=== PATIENT | female | born 1985 | race Caucasian/White ===

== ENCOUNTER 2017-04-21 12:12 | Emergency (ER) | payer OTHER ==
[2017-04-21 12:25] VITALS: BMI 33.3
[2017-04-21] MEDS ORDERED: ACETAMINOPHEN 500 MG TABLET (FP) PO ONE (13:16)
[2017-04-21 13:18] LABS: URINE APPEARANCE SLCLOUDY; URINE BILIRUBIN NEGATIVE (NEGATIVE); URINE BLOOD NEGATIVE (NEGATIVE); URINE COLOR YELLOW; URINE GLUCOSE (UA) NEGATIVE (NEGATIVE); URINE KETONE NEGATIVE (NEGATIVE); URINE LEUK ESTERASE NEGATIVE (NEGATIVE); URINE NITRITE NEGATIVE (NEGATIVE); URINE PROTEIN NEGATIVE (NEGATIVE); URINE UROBILINOGEN NEGATIVE mg/dL (0.2-1.0)
[2017-04-21] MEDS ORDERED: ACETAMINOPHEN 325 MG TABLET (FP) ONE (13:21)
--- NOTE | 2017-04-21 13:31 | PDOC ---
History of Present Illness - General Chief Complaint: Pain Stated Complaint: ABDOMINAL PAIN Time Seen by Provider: 04/21/17 12:25 History Source: Patient Exam Limitations: No Limitations - History of Present Illness Travel History: No Initial Comments: 04/21/17 13:26 31-year-old female presents the emergency room with worsening left suprapubic cramping that began yesterday and worsened in severity today. Patient states was moving her bowels which she states has been semi-formed to diarrhea for the past 2 days when she had the sudden sharp pain to the left lower quadrant. Patient denies history of GI disorders but does state history of PCO S and the LEEP procedure. Patient also states was started on oral contraceptives 3 weeks ago and did double up on a pill 2 days ago. Patient has no urinary complaints, fever, chills, abdominal distention, or weakness Timing/Duration: reports: getting worse Quality: reports: moderate, cramping, sharpness Abdominal Pain Onset Location: reports: suprapubic (lt) Pain Radiation: reports: LLQ, periumbilical Activities at Onset: reports: none Aggravating Factors: improves with: Movement Alleviating Factors: improves with: None Past History - Travel Traveled outside of the country in the last 30 days: No Close contact w/someone who was outside of country & ill: No - Past Medical History Allergies/Adverse Reactions: Allergies Allergy/AdvReac Type Severity Reaction Status Date / Time No Known Allergies Allergy Verified 04/21/17 12:25 Home Medications: Ambulatory Orders Iron 18 mg PO Q2D 04/21/17 Norethindrone-E.estradiol-Iron [Microgestin 24 Fe 1 mg-20 Mcg] 1 tab PO DAILY Anemia: Yes Other medical history: POS - Surgical History Abdominal Surgery: Yes (csection x3, leep,circulage) - Psycho/Social/Smoking Cessation Hx Suicidal Ideation: No Smoking History: Unknown if ever smoked Hx Alcohol Use: No Drug/Substance Use Hx: No Patient Lives Alone: No Lives with/in: spouse/SO Abd/GI Specific PMHX - Complaint Specific PMHX Colitis: No Diverticulitis: No Irritable Bowel Synd (IBS): No Review of Systems - Review of Systems Able to Perform ROS?: Yes Constitutional: No: Symptoms Reported ABD/GI: Yes: Diarrhea, Abdominal cramping Musculoskeletal: No: Symptoms Reported Integumentary: No: Symptoms Reported Neurological: No: Symptoms reported *Physical Exam - Vital Signs Last Vital Signs Temp Pulse Resp BP Pulse Ox 98.2 F 83 14 105/77 99 04/21/17 12:15 04/21/17 12:15 04/21/17 12:15 04/21/17 12:15 04/21/17 12:32 - Physical Exam General Appearance: Yes: Nourished, Appropriately Dressed. No: Apparent Distress Female Pelvic Exam: positive: normal external exam, cervical os closed, adnexal tenderness (mild left). negative: CMT, discharge, vaginal bleeding Gastrointestinal/Abdominal: positive: Normal Bowel Sounds, Soft, Tenderness ( left lower quadrant left suprapubic and lower periumbilical) Musculoskeletal: negative: CVA Tenderness Extremity: positive: Normal Capillary Refill Integumentary: positive: Normal Color, Warm, Moist Neurologic: positive: Motor Strength 5/5 (ambulatory) ED Treatment Course - LABORATORY CBC & Chemistry Diagram: 04/21/17 16:50 04/21/17 16:50 - ADDITIONAL ORDERS Additional order review: Laboratory Results 04/21/17 01:02 Urine Color Yellow Urine Appearance Slcloudy Urine pH 5.0 Urine Protein Negative Urine Glucose (UA) Negative Urine Ketones Negative Urine Blood Negative Urine Nitrite Negative Urine Bilirubin Negative Urine Urobilinogen Negative Ur Leukocyte Esterase Negative - RADIOLOGY Radiology Studies Ordered: Category Date Time Status PELVIC / BLADDER US [US] Stat Ultrasound 04/21/17 13:17 Ordered TRANSVAGINAL ULTRASOUND US [US] Stat Ultrasound 04/21/17 13:16 Ordered - Medications Given in the ED: ED Medications Discontinued Medications Generic Name Dose Route Start Last Admin Trade Name Freq PRN Reason Stop Dose Admin Acetaminophen 975 mg 04/21/17 13:16 04/21/17 13:19 Tylenol - PO 04/21/17 13:17 975 mg ONCE ONE Administration Medical Decision Making - Medical Decision Making 04/21/17 13:31 Patient here with complaints of left lower quadrant pain along with diarrhea for the past 3 days. Patient history of pcos and was recently started on OCP, 3 weeks ago. Patient exam had adnexal tenderness and suprapubic tenderness concerning for cysts versus torsion versus ectopic. Patient ordered for ultrasound urinalysis urine culture and urine . 04/21/17 14:07 Laboratory Tests 04/21/17 01:02 Urine Ketones Negative Urine Nitrite Negative Urine Urobilinogen Negative 04/21/17 15:44 Ultrasound shows a small uterine fibroid and trace free pelvic fluid but no evidence of ovarian cyst or torsion. 04/21/17 17:40 Laboratory Tests 04/21/17 04/21/17 04/21/17 16:50 16:50 16:50 WBC 6.9 Hgb 10.7 Hct 32.8 MCV 74.0 L MCH 24.2 L RDW 18.3 H Sodium 138 Potassium 4.1 Chloride 105 Carbon Dioxide 24 Anion Gap 9 BUN 14 Creatinine 0.5 L Creat Clearance w eGFR > 60 Random Glucose 111 H Calcium 9.0 AST 9 L Albumin 3.0 L Serum , Qual Negative Pt stated feeling better and drinking aplle juice without difficulty or complaints. Patient on re- exam had mild left suprapubic tenderness and mid suprapubic tenderness. Patient to be discharged home to follow bland diet over the next 72 hours and return to the ED if symptoms worsen. *DC/Admit/Observation/Transfer Diagnosis at time of Disposition: Suprapubic pain - Discharge Dispostion Disposition: HOME Condition at time of disposition: Improved - Referrals Referrals: Ysabel Bruce MD [Primary Care Provider] - - Patient Instructions Printed Discharge Instructions: DI for Uterine Fibroids Additional Instructions: Please take Tylenol for discomfort and eat a bland diet for the next 72 hours. If symptoms return or worsen please come back to the emergency room immediately.
--- NOTE | 2017-04-21 15:50 | PDOC ---
*Physical Exam - Vital Signs Last Vital Signs Temp Pulse Resp BP Pulse Ox 98.2 F 83 14 105/77 99 04/21/17 12:15 04/21/17 12:15 04/21/17 12:15 04/21/17 12:15 04/21/17 12:32 ED Treatment Course - LABORATORY CBC & Chemistry Diagram: 04/21/17 16:50 04/21/17 16:50 - ADDITIONAL ORDERS Additional order review: Laboratory Results 04/21/17 01:02 Urine Color Yellow Urine Appearance Slcloudy Urine pH 5.0 Urine Protein Negative Urine Glucose (UA) Negative Urine Ketones Negative Urine Blood Negative Urine Nitrite Negative Urine Bilirubin Negative Urine Urobilinogen Negative Ur Leukocyte Esterase Negative - Medications Given in the ED: ED Medications Discontinued Medications Generic Name Dose Route Start Last Admin Trade Name Freq PRN Reason Stop Dose Admin Acetaminophen 975 mg 04/21/17 13:16 04/21/17 13:19 Tylenol - PO 04/21/17 13:17 975 mg ONCE ONE Administration Medical Decision Making - Medical Decision Making 04/21/17 22:58 Agree with UX INFORMATION ARCHITECT's evaluation, assessment, and plan. 31 F with lower abdominal pain. Work up, including UA, transvaginal US, labwork all negative. Safe for DC. *DC/Admit/Observation/Transfer Diagnosis at time of Disposition: Suprapubic abdominal pain - Discharge Dispostion Disposition: HOME Condition at time of disposition: Improved - Referrals Referrals: Ysabel Bruce MD [Primary Care Provider] - - Patient Instructions Printed Discharge Instructions: DI for Uterine Fibroids Additional Instructions: Please take Tylenol for discomfort and eat a bland diet for the next 72 hours. If symptoms return or worsen please come back to the emergency room immediately.
[2017-04-21 17:18] LABS: BASOPHIL 0.2 % (0-2.0); EOSINOPHIL 0.1 % (0-4.5); MCH 24.2 pg (25.7-33.7); MCHC 32.7 g/dl (32.0-36.0); MEAN PLT VOLUME 9.1 fl (7.5-11.1); NEUTROPHILS 74.2 % (42.8-82.8); PLATELET COUNT 244 K/MM3 (134-434); RDW 18.3 % (11.6-15.6); WHITE BLOOD COUNT 6.9 K/mm3 (4.0-10.0)
[2017-04-21 17:33] LABS: ANION GAP 9 (8-16); BILIRUBIN,TOTAL 0.3 mg/dL (0.2-1.0); CO2 24 mmol/L (21-32); CREATININE 0.5 mg/dL (0.55-1.02); GLUCOSE,RANDOM 111 mg/dL (74-106); SGOT/AST 9 U/L (15-37); SGPT/ALT 33 U/L (12-78); TOT PROT 6.5 g/dl (6.4-8.2)
[2017-04-21 17:34] LABS: ALK PHOS 116 U/L (45-117)
[2017-04-21 19:44] VITALS: BP 139/75; PULSE 86; TEMP 98.7
== END 2017-04-21 18:05 | disposition home or self-care (01) ==
LOC: JER 12:12
DX: D25.9 Leiomyoma of uterus, unspecified (principal); E28.2 Polycystic ovarian syndrome
CPT/HCPCS: 36415; 76830-TC; 76856-TC; 80053; 81003; 84703; 85025; 87086; 87186; 99283-25

== ENCOUNTER 2020-10-25 13:49 | Emergency (ER) | payer OTHER ==
[2020-10-25 13:57] VITALS: BP 112/71; PULSE 90; TEMP 98.2; BMI 29.4
[2020-10-25] MEDS ORDERED: SODIUM CHLORIDE 1,000 ML IV STA (14:49)
[2020-10-25] MEDS ORDERED: ONDANSETRON 4 MG/2 ML VIAL IVPUSH ONE (14:50)
[2020-10-25 16:38] LABS: BASO % 0.7 % (0-2.0); EOS % 0.3 % (0-4.5); HEMATOCRIT 33.8 % (32.4-45.2); LYMPH % 23.8 % (8-40); MCH 23.7 pg (25.7-33.7); MCHC 32.5 g/dl (32.0-36.0); MEAN CELL VOLUME 72.8 fl (80-96); MEAN PLT VOLUME 9.2 fl (7.5-11.1); MONO % 9.3 % (3.8-10.2); NEUT % 65.9 % (42.8-82.8); PLATELET COUNT 325 K/MM3 (134-434); RBC 4.64 M/mm3 (3.60-5.2); RDW 18.9 % (11.6-15.6); WHITE BLOOD COUNT 5.8 K/mm3 (4.0-10.0)
[2020-10-25 16:51] LABS: CHLORIDE 106 mmol/L (98-107); POTASSIUM 3.7 mmol/L (3.5-5.1); SODIUM 137 mmol/L (136-145)
[2020-10-25 16:52] LABS: CALCIUM 9.2 mg/dL (8.5-10.1)
[2020-10-25 16:53] LABS: ALBUMIN 4.2 g/dl (3.4-5.0); ANION GAP 9 MMOL/L (8-16); BLOOD UREA NITROGEN 21.7 mg/dL (7-18); CO2 23 mmol/L (21-32); GLUCOSE,RANDOM 86 mg/dL (74-106)
[2020-10-25 16:56] LABS: SGOT/AST 7 U/L (15-37); SGPT/ALT 13 U/L (13-61)
[2020-10-25 16:58] LABS: BILIRUBIN,TOTAL 0.5 mg/dL (0.2-1); TOT PROT 8.1 g/dl (6.4-8.2)
[2020-10-25 17:00] LABS: ALK PHOS 66 U/L (45-117)
[2020-10-25 17:01] LABS: CREATININE 0.7 mg/dL (0.55-1.3)
[2020-10-25] MEDS ORDERED: MAG HYDROX/AL HYDROX/SIMETH -MYLANTA- ORAL SUSPENSION PO ONE (17:26)
[2020-10-25 17:28] LABS: PLATELET ESTIMATE ADEQUATE
[2020-10-25] MEDS ORDERED: MAG HYDROX/AL HYDROX/SIMETH 30 ML UNIT-DOSE CUP ONE (17:58)
== END 2020-10-25 18:15 | disposition home or self-care (01) ==
LOC: JER 13:49
PROC: 3E033GC Introduction of Other Therapeutic Substance into Peripheral Vein, Percutaneous Approach (ICD-10-PCS; principal; 2020-10-25)
PROC: 3E0337Z Introduction of Electrolytic and Water Balance Substance into Peripheral Vein, Percutaneous Approach (ICD-10-PCS; 2020-10-25)
DX: R07.9 Chest pain, unspecified (principal)
CPT/HCPCS: 36415; 71046-TC-FY; 80053; 82550; 84439; 84443; 84481; 84484; 84703; 85025; 93005; 93010; 99285-25